=== PATIENT | female | born 1955 | race Caucasian/White ===

== ENCOUNTER 2021-02-19 07:28 | Inpatient (IN) | payer BC ==
[2021-02-19] MEDS ORDERED: Acetaminophen 500 MG TAB ONE (07:43)
[2021-02-19] MEDS ORDERED: Nitroglycerin 2% Ointment 1 INCH/1 GM Packet ONE (07:43)
[2021-02-19 08:05] LABS: #Basophils 0.1 thou/uL (0.0-0.2); #Eosinphils 0.1 thou/uL (0.0-0.7); #Lymphocytes 2.7 thou/uL (1.20-3.40); #Monocytes 0.8 thou/uL (0.11-0.59); #Neutrophils 4.6 thou/uL (1.40-6.50); %Basophils 1.1 % (0.0-1.0); %Eosinophils 1.8 % (0.0-10.0); %Monocytes 9.6 % (0.0-10.0); %Neutrophils 55.6 % (42.0-75.0); Hemoglobin 14.7 g/dL (12.0-16.0); Mean Corpuscular HGB CONC 33.1 g/dL (32.0-36.0); Mean Corpuscular Hemoglobin 33.7 pg (27.0-31.0); Platelet Count 248 thou/uL (130-400); RBC Distribution Width 11.3 % (11.5-14.5); Red Blood Cell (RBC) Count 4.36 mill/uL (4.20-5.40); White Blood Cell (WBC) Count 8.3 thou/uL (4.8-10.8)
[2021-02-19 08:23] LABS: ALT (SGPT) 30 U/L (8-55); AST (SGOT) 28 U/L (5-34); Albumin 4.3 g/dL (3.4-4.8); Alkaline Phosphatase 69 U/L (40-110); Anion Gap 16 mmol/L (10-20); BUN (Urea Nitrogen) 18 mg/dL (9.8-20.1); Bilirubin, Total 0.4 mg/dL (0.2-1.2); Calc. Creatinine Clearance 0 mL/min (70-130); Calcium 9.2 mg/dL (7.8-10.44); Carbon Dioxide 23 mmol/L (23-31); Chloride 104 mmol/L (98-107); Globulin 2.9 g/dL (2.4-3.5); Glucose 95 mg/dL (80-115); Lipase 33 U/L (8-78); Potassium 4.1 mmol/L (3.5-5.1); Protein, Total 7.2 g/dL (5.8-8.1); Sodium 139 mmol/L (136-145)
[2021-02-19 11:17] LABS: Troponin I Less than 0.010 ng/mL (< 0.028)
[2021-02-19] MEDS ORDERED: Iopamidol-370 76% 500 ML 1 ML ONE (12:03)
[2021-02-19] MEDS ORDERED: Nitroglycerin 0.4 MG TAB (25 Tab Bottle) SL PRN (14:16)
[2021-02-19] MEDS ORDERED: Acetaminophen 650 MG Suppository PR PRN (14:16)
[2021-02-19] MEDS ORDERED: Senokot S 8.6-50 MG TAB PO PRN (14:16)
[2021-02-19] MEDS ORDERED: Acetaminophen 325 MG TAB PO PRN (14:16)
[2021-02-19 14:23] LABS: Troponin I Less than 0.010 ng/mL (< 0.028)
[2021-02-19] MEDS ORDERED: Pantoprazole 40 MG VIAL IVP SCH (14:30)
[2021-02-19 14:47] LABS: Hemoglobin A1c 5.5 % (4.0-6.0)
[2021-02-19 15:15] VITALS: BMI 29.9
[2021-02-19 18:00] LABS: SARS-CoV-2 PCR by NAA Not Detected (NotDetected)
[2021-02-20 04:56] LABS: #Basophils 0.1 thou/uL (0.0-0.2); #Eosinphils 0.1 thou/uL (0.0-0.7); #Lymphocytes 1.6 thou/uL (1.20-3.40); #Monocytes 0.7 thou/uL (0.11-0.59); %Basophils 0.8 % (0.0-1.0); %Lymphocytes 24.8 % (21.0-51.0); %Monocytes 10.4 % (0.0-10.0); Hemoglobin 13.4 g/dL (12.0-16.0); Mean Corpuscular HGB CONC 34.2 g/dL (32.0-36.0); Mean Corpuscular Hemoglobin 34.9 pg (27.0-31.0); Mean Platelet Volume 8.7 fL (7.4-10.4); Platelet Count 220 thou/uL (130-400); RBC Distribution Width 11.4 % (11.5-14.5); Red Blood Cell (RBC) Count 3.84 mill/uL (4.20-5.40); White Blood Cell (WBC) Count 6.4 thou/uL (4.8-10.8)
[2021-02-20 05:18] LABS: Anion Gap 14 mmol/L (10-20); BUN (Urea Nitrogen) 19 mg/dL (9.8-20.1); Calc. Creatinine Clearance 99 mL/min (70-130); Calcium 8.6 mg/dL (7.8-10.44); Carbon Dioxide 22 mmol/L (23-31); Cardiac Risk 3.7 (Less than 4.5); Chloride 107 mmol/L (98-107); Cholesterol 190 mg/dl (< 200 Desired); Glucose 88 mg/dL (80-115); HDL Cholesterol 51 mg/dL (>60 Neg Risk); LDL Cholesterol, Calculated 117 mg/dL; Sodium 139 mmol/L (136-145); Triglycerides 112 mg/dL (Less than 150)
[2021-02-20] MEDS: Ezetimibe 10 MG TAB PO SCH (07:24)
[2021-02-20] MEDS: Aspirin Chewable 81 MG TAB PO SCH (07:24)
[2021-02-20] MEDS: Rosuvastatin 20 MG TAB PO SCH (07:24)
[2021-02-20] MEDS: Pantoprazole 40 MG VIAL IVP SCH (07:25)
[2021-02-20] MEDS ORDERED: ADENOSINE 60 MG/20 ML VIAL ONE (11:05)
[2021-02-20] MEDS ORDERED: Famotidine 20 MG TAB PO PRN (18:08)
[2021-02-21] MEDS: Aspirin Chewable 81 MG TAB PO SCH (07:45)
[2021-02-21] MEDS: Rosuvastatin 20 MG TAB PO SCH (07:46)
[2021-02-21] MEDS: Ezetimibe 10 MG TAB PO SCH (07:46)
[2021-02-21] MEDS: Pantoprazole 40 MG VIAL IVP SCH (07:46)
[2021-02-21 08:19] VITALS: TEMP 98.8
[2021-02-21 12:31] VITALS: BP 120/70
== END 2021-02-21 12:35 | disposition home or self-care (01) | DRG 392 ==
LOC: ERS 07:28 → ERHOLD 09:51 → 2SW 15:06 → OBSVTOIN 02-20 18:09
PROVIDERS: ADMIT Internal Medicine; ATTEND Internal Medicine
DX: K21.9 Gastro-esophageal reflux disease without esophagitis (principal); E78.5 Hyperlipidemia, unspecified; Z82.49 Family history of ischemic heart disease and other diseases of the circulatory system; Z79.899 Other long term (current) drug therapy; Z98.51 Tubal ligation status; Z98.49 Cataract extraction status, unspecified eye; U07.0 Vaping-related disorder
CPT/HCPCS: 36415; 71045; 71275; 78452; 80048; 80053; 80061; 83036; 83690; 83735; 84443; 84484; 85025; 85379; 87635; 93005; 93017; 93306; 94760; 96374; 96376; A9500; C9113; G0378; J0153; Q9967; U0003; U0005

== ENCOUNTER 2025-06-12 09:24 | Outpatient (CLI) | payer MEDICARE, OTHER | END 2025-06-12 09:25 | disposition home or self-care (01) | LOC: BICMAMMO 09:24 | PROVIDERS: ATTEND Internal Medicine | DX: Z12.31 Encounter for screening mammogram for malignant neoplasm of breast (principal); Z80.3 Family history of malignant neoplasm of breast | CPT/HCPCS: 77063; 77067 ==